=== PATIENT | male | born 1990 | race African-American/Black ===

== ENCOUNTER 2024-06-24 06:58 | Emergency (ER) | payer OTHER ==
[~2024-06-24] VITALS: Ht 175.3 cm; Wt 102.5 kg
[2024-06-24 07:03] VITALS: O2SAT 100
[2024-06-24 07:07] VITALS: BP 152/87; PULSE 88; RESP 18; TEMP 98.7; O2SAT 99
== END 2024-06-24 07:30 | disposition left against medical advice (07) ==
LOC: ER 06:58
DX: Z53.21 Procedure and treatment not carried out due to patient leaving prior to being seen by health care provider (principal)